=== PATIENT | male | born 1955 | race Caucasian/White ===

== ENCOUNTER 2022-08-30 09:22 | Inpatient (IN) | payer MEDICARE, MEDICAID ==
[~2022-08-30] VITALS: Ht 167.6 cm; Wt 79.8 kg
[2022-08-30] MEDS ORDERED: IOHEXOL-350 100 ML BOTTLE ONE (10:00)
[2022-08-30 10:21] LABS: BASOPHILS % 1.1 % (0.0-2.0); EOSINOPHILS % 0.9 % (0.0-5.0); HEMATOCRIT. 38.7 % (42.0-52.0); HEMOGLOBIN. 13.1 g/dL (14.0-18.0); LYMPHOCYTES % 23.5 % (20.0-50.0); MEAN CORPUSCULAR HEMOGLOBIN 28.8 pg (28.0-32.0); MEAN CORPUSCULAR VOLUME 84.9 fL (80.0-94.0); MEAN PLATELET VOLUME 7.9 fl (7.4-10.4); MONOCYTES % 6.7 % (2.0-8.0); NEUTROPHILS % 67.8 % (40.0-76.0); PLATELET 244 x1000/uL (130-400); RED BLOOD CELL COUNT 4.56 mill/uL (4.7-6.1); RED CELL DISTRIBUTION WIDTH 15.1 % (11.6-14.6)
[2022-08-30 10:26] LABS: CHLORIDE 104 mEq/L (98-107)
[2022-08-30 10:35] LABS: ETHANOL BLOOD < 10 mg/dL
[2022-08-30] MEDS ORDERED: ASPIRIN 325MG EC TABLET PO ONE (11:00)
[2022-08-30] MEDS ORDERED: GUAIFENESIN 200MG/10ML SUGAR FREE UDC PO PRN (13:45)
[2022-08-30] MEDS ORDERED: AMLODIPINE 10MG TABLET PO SCH (13:45)
[2022-08-30] MEDS ORDERED: ONDANSETRON HCL 4MG/2ML INJ IV PRN (13:45)
[2022-08-30] MEDS ORDERED: DOCUSATE SODIUM 100MG CAPSULE PO PRN (13:45)
[2022-08-30] MEDS ORDERED: MAGNESIUM/ALUMINUM HYDROXIDE/SIMETHICONE 30ML UDC PO PRN (13:45)
[2022-08-30] MEDS ORDERED: ACETAMINOPHEN 325MG TABLET PO PRN (13:45)
[2022-08-30] MEDS ORDERED: TRAMADOL 50MG TABLET PO PRN (13:45)
[2022-08-30] MEDS ORDERED: NALOXONE HCL 0.4MG/ML VIAL IV PRN (14:00)
[2022-08-30] MEDS: ENOXAPARIN 40MG/0.4ML SYR SUBCUT SCH (17:05)
[2022-08-30 17:15] LABS: CLARITY URINE CLEAR (CLEAR); COLOR URINE YELLOW (YELLOW); KETONES URINE 2+ (NEGATIVE); LEUKOCYTE ESTERASE URINE NEGATIVE (NEGATIVE); NITRITE URINE NEGATIVE (NEGATIVE); OCCULT BLOOD URINE NEGATIVE (NEGATIVE); PH URINE 6.5 (4.5-8.0); PROTEIN URINE NEGATIVE (NEGATIVE); SPECIFIC GRAVITY URINE 1.079 (1.005-1.030); UROBILINOGEN URINE 0.2 E.U./dL (0.2-1.0)
[2022-08-30 17:26] LABS: *AMPHETAMINES SCREEN URINE NEGATIVE (NEGATIVE); *BARBITURATES SCREEN URINE NEGATIVE (NEGATIVE); *BENZODIAZEPINES SCREEN URINE NEGATIVE (NEGATIVE); *COCAINE SCREEN URINE NEGATIVE (NEGATIVE); CANNABINOID URINE SCREEN NEGATIVE (NEGATIVE); METHADONE URINE SCREEN NEGATIVE (NEGATIVE); OPIATES URINE SCREEN NEGATIVE (NEGATIVE); PHENCYCLIDINE URINE SCREEN NEGATIVE (NEGATIVE)
[2022-08-30 18:00] VITALS: BP 155/90
[2022-08-30] MEDS ORDERED: DEXTROSE 50% WATER 50ML SYRINGE IV PRN (19:00)
[2022-08-30 20:00] VITALS: BP_SYST 152; BP_SYST 157; BP_DIAS 87
[2022-08-30] MEDS: INSULIN LISPRO 100 UNITS/ML SUBCUT SCH (21:00)
[2022-08-30] MEDS ORDERED: CLONIDINE 0.1MG TABLET PO PRN (21:00)
[2022-08-30] MEDS: BLOOD SUGAR DIAGNOSTIC STRIP TEST SCH (21:09)
[2022-08-30] MEDS: ATORVASTATIN CALCIUM 40MG TABLET PO SCH (21:14)
[2022-08-31] VITALS: BP 142/72
[2022-08-31 04:00] VITALS: BP 136/81
[2022-08-31] MEDS: BLOOD SUGAR DIAGNOSTIC STRIP TEST SCH ×4 (06:40→21:40)
[2022-08-31] MEDS: INSULIN LISPRO 100 UNITS/ML SUBCUT SCH ×4 (06:41→21:48)
[2022-08-31 08:00] VITALS: BP 139/78
[2022-08-31] MEDS ORDERED: AMLODIPINE 5MG TABLET PO SCH (09:00)
[2022-08-31] MEDS: CLOPIDOGREL 75MG TABLET PO SCH (09:55)
[2022-08-31] MEDS: ASPIRIN 81MG EC TABLET PO SCH (09:56)
[2022-08-31] MEDS: PIOGLITAZONE 15MG TABLET PO SCH (09:56)
[2022-08-31] MEDS: AMLODIPINE 5MG TABLET PO SCH (09:57)
[2022-08-31 12:00] VITALS: BP 132/79
[2022-08-31 12:23] LABS: HEPATITIS B SURFACE ANTIGEN NEGATIVE
[2022-08-31] MEDS: ENOXAPARIN 40MG/0.4ML SYR SUBCUT SCH (14:57)
[2022-08-31 16:00] VITALS: BP 131/81
[2022-08-31 20:00] VITALS: BP 132/72
[2022-08-31] MEDS ORDERED: MECLIZINE 25MG TABLET PO PRN (20:00)
[2022-08-31] MEDS: ATORVASTATIN CALCIUM 40MG TABLET PO SCH (21:35)
[2022-09-01] VITALS: BP 148/83
[2022-09-01 04:00] VITALS: BP 137/78
[2022-09-01] MEDS: BLOOD SUGAR DIAGNOSTIC STRIP TEST SCH ×2 (06:55→11:53)
[2022-09-01] MEDS: INSULIN LISPRO 100 UNITS/ML SUBCUT SCH ×2 (07:10→12:41)
[2022-09-01 08:00] VITALS: BP 150/81
[2022-09-01] MEDS: ASPIRIN 81MG EC TABLET PO SCH (08:18)
[2022-09-01] MEDS: CLOPIDOGREL 75MG TABLET PO SCH (08:18)
[2022-09-01] MEDS: PIOGLITAZONE 15MG TABLET PO SCH (08:18)
[2022-09-01] MEDS: AMLODIPINE 5MG TABLET PO SCH (08:19)
[2022-09-01 12:00] VITALS: BP 153/78
[2022-09-01] MEDS: ENOXAPARIN 40MG/0.4ML SYR SUBCUT SCH (13:59)
[2022-09-01 14:26] VITALS: BP 153/78
[2022-09-02] MEDS ORDERED: AMLODIPINE 10MG TABLET PO SCH (09:00)
== END 2022-09-01 14:49 | DRG 65 ==
LOC: ER 09:22 → 7EST 10:51 → EDBEDREQ 10:55 → ER 17:50
PROVIDERS: ADMIT Hospitalist; ATTEND Hospitalist
PROC: 4A00X4Z Measurement of Central Nervous Electrical Activity, External Approach (ICD-10-PCS; principal; 2022-08-31)
DX: I63.9 Cerebral infarction, unspecified (principal); G81.94 Hemiplegia, unspecified affecting left nondominant side; E11.9 Type 2 diabetes mellitus without complications; E78.00 Pure hypercholesterolemia, unspecified; I10 Essential (primary) hypertension; R29.703 NIHSS score 3; R47.1 Dysarthria and anarthria; Z79.899 Other long term (current) drug therapy
CPT/HCPCS: 36415; 70496; 70498; 70551; 71045; 80053; 80061; 80305; 80320; 81003; 82962; 84484; 85025; 86803; 87340; 93005; 93970; 95816; 97116; 97162; 97166; 99291; J1650; J1815; Q9967; G0480